=== PATIENT | female | born 1965 | race Caucasian/White ===

== ENCOUNTER 2016-04-04 10:03 | Emergency (ER) | payer OTHER ==
[~2016-04-04] VITALS: Wt 72.0 kg
[~2016-04-04 10:03] MED LIST: PREN1TAB49 PO; RANI-347 PO; SIME125T17
[2016-04-04] MEDS ORDERED: DIPHENHYDRAMINE 50 MG INJ IV ONE (11:00)
[2016-04-04] MEDS ORDERED: METOCLOPRAMIDE 10 MG INJ IV ONE (11:00)
[2016-04-04] MEDS ORDERED: IBUP-1542 PO (11:20)
[2016-04-04] MEDS ORDERED: FLUT9.9S NASAL (11:20)
--- NOTE | 2016-04-04 11:34 | ERD ---
ER Documentation Chief Complaint Date/Time DATE: 04/04/16 TIME: 11:22 Chief Complaint NON TRAUMATIC HEADACHE AND SINUS PRESSURE FOR THEPAST FEW DAYS. NO NEURO HPI 51 year old female with history of HTN and high cholesterol not on any medications presents to the emergency department complaining of trapezius muscle pain radiating to the occipital region for and frontal sinus pressure for two days. Patient states she has history of sinusitis. She states pain is constant 8/10 worsening with movement. She states she had a lot of salt and bread yesterday which may have been a trigger for her. She has tried ibuprofen at 6am with some relief. She denies current photophobia, states she she had that yesterday. Denies nausea, vision changes. ROS All systems reviewed and are negative except as per history of present illness. Medications Home Meds Active Scripts Ibuprofen* (Ibuprofen*) 600 Mg Tablet, 600 MG PO Q6H Y for PAIN, #30 TAB Prov:JUANPABLO MADDEN PA-C 04/04/16 Fluticasone Propionate (Flonase Allergy Relief) 9.9 Ml [place].susp, 1 SPRAY NASAL BID, #1 BOTTLE TO EACH NOSTRIL Prov:JUANPABLO MADDEN PA-C 04/04/16 Reported Medications Ranitidine Hcl* (Ranitidine Hcl*) 75 Mg Tablet, 75 MG PO DAILY 02/05/12 Simethicone (Mylanta Gas Maximum Strength) 125 Mg Tab.chew, 125 MG .ROUTE BID 02/05/12 Vits W-Ca,Fe,Fa(<1MG) () 1 Tab Tablet, 1 TAB PO DAILY 02/05/12 Vits W-Ca,Fe,Fa(<1MG) () 1 Tab Tablet, 1 TAB PO DAILY 02/05/12 Vits W-Ca,Fe,Fa(<1MG) () 1 Tab Tablet, 1 TAB PO 01/10/12 Allergies Allergies: Uncoded Allergies: CHILE (Adverse Reaction, Intermediate, 01/10/12) PMhx/Soc Hx Cardiac Disorders: Yes (HIGH CHOLESTEROL) Hx Miscellaneous Medical Probl: Yes (DM DURING ) Hx Alcohol Use: No Hx Substance Use: No Hx Tobacco Use: No Smoking Status: Never smoker Physical Exam Vitals Vital Signs Date Time Temp Pulse Resp B/P Pulse Ox O2 Delivery O2 Flow Rate FiO2 04/04/16 10:04 98.7 72 20 166/74 96 Physical Exam GENERAL: well-developed/well-nourished, in no apparent distress, non-toxic appearing HENT: NC/AT, bilateral tympanic membrane is normal with good cone of light, nares patent, oropharynx clear without exudates EYES: Conjunctiva normal, PERRLA, EOMI, no nystagmus noted NECK: Supple, no lymphadenopathy PULM: CTA bilaterally, no rales, rhonchi, or wheezing heard CV: Normal S1S2, RRR, good capillary refill GI: Soft, non-distended, normal bowel sounds, non-tender BACK: No midline tenderness, no masses, No CVAT. TTP on trapezius muscle EXT: No clubbing, cyanosis, or edema NEURO: Alert and orientated to person, place, and time. CN II-IIX intact. Gait and coordination were normal. Hand cooling room attendant strength were equal and within normal limits SKIN: Intact, normal turgor PSYCH: Normal mood and mentation, patient denied SI Results 24 hrs Laboratory Tests Test 04/04/16 11:13 Bedside Glucose 92mg/dL Current Medications Medications (Trade) Dose Ordered Sig/Lorenzo Route PRN Reason Start Time Stop Time Status Last Admin Dose Admin Diphenhydramine HCl (Benadryl) 50 mg ONCE ONCE IV 04/04/16 11:00 04/04/16 11:01 DC 04/04/16 10:55 Metoclopramide HCl (Reglan) 10 mg ONCE ONCE IV 04/04/16 11:00 04/04/16 11:01 DC 04/04/16 10:55 Procedures/MDM 51 year old female presents with frontal sinus pressure and occipital headache with trapezius muscle pain. My differential diagnoses include tension, migraine , and cluster headache, overuse medication headache, subarachnoid hemorrhage, meningitis, stroke. IV access established, pain relief was given in the ED with Benadryl and Reglan with some improvement. Patient is speaking clearly, ambulating well and smiling. Neurology exam was normal and I don't recommend a CT scan at this time. I have reassessed patient and her headache has improved significantly. Patient's blood pressure was elevated (>120/80) but appears stable without evidence of hypertension emergency or urgency. The patient was counseled about the risks of hypertension and urged to pursue outpatient monitoring and therapy within a week with their primary care physician. She is hemodynamically stable and neurovascularly intact. Prescriptions ibuprofen and flonase were given. Discussed to follow up with a primary care physician in the next couple days. Return to the ER if condition worsens or not improving as expected. Patient agreed and understood this plan. Patient agreed to follow-up with her primary care physician today or tomorrow Departure Diagnosis: Primary Impression: Headache Headache type: unspecified Headache chronicity pattern: acute headache Intractability: not intractable Qualified Code: R51 - Acute nonintractable headache, unspecified headache type Condition: Stable Patient Instructions: Self-Care for Headaches, Understanding Headache Pain, Managing Tension-type Headache Symptoms Referrals: HEATH BENTON (PCP) Additional Instructions: Visite a blair emmett lawson para un EXAMEN.Regrese a estas instalaciones si no se mejora kimmy esperbamos o kimmy le dijimos. [place] toda la medicina oscar y kimmy se le indic. Regrese a estas instalaciones si no se mejora kimmy esperbamos o kimmy le dijimos. JUANPABLO MADDEN PA-C Apr 04, 2016 11:33
[2016-04-04 11:43] VITALS: BP 134/65; PULSE 78; RESP 18; TEMP 98.3
== END 2016-04-04 11:43 | disposition home or self-care (01) ==
LOC: FTE 10:03
DX: R51 Headache (principal); I10 Essential (primary) hypertension
CPT/HCPCS: 82962; J1200; J2765; 96374; 96375

== ENCOUNTER 2016-09-22 07:38 | Emergency (ER) | payer OTHER ==
[~2016-09-22] VITALS: Wt 71.0 kg
[~2016-09-22 07:38] MED LIST changes: +FLUT9.9S NASAL; +IBUP-1542 PO
--- NOTE | 2016-09-22 09:44 | ERD ---
ER Documentation Chief Complaint Date/Time DATE: 09/22/16 TIME: 09:40 Chief Complaint BLOOD PRESSURE HIGHER THAN USUAL; BLURRY/DIZZY HPI 51-year-old female with a history of hypertension presenting with an episode of blurry vision yesterday with some dizziness. She also had a headache that has since resolved. She also complains of occasional palpitations but she states that this has been going on for a very long time. She denies any current chest pain, shortness of breath, dizziness, fever, chills, nausea, vomiting, or vision disturbance. No focal weakness or numbness. Her systolic blood pressure at home was in the 150s so she got concerned. She is not on any blood pressure medications. She does have a PCP ROS All systems reviewed and are negative except as per history of present illness. Medications Home Meds Active Scripts Ibuprofen* (Ibuprofen*) 600 Mg Tablet, 600 MG PO Q6H Y for PAIN, #30 TAB Prov:JUANPABLO MADDEN PA-C 04/04/16 Fluticasone Propionate (Flonase Allergy Relief) 9.9 Ml [place].susp, 1 SPRAY NASAL BID, #1 BOTTLE TO EACH NOSTRIL Prov:JUANPABLO MADDEN PA-C 04/04/16 Reported Medications Ranitidine Hcl* (Ranitidine Hcl*) 75 Mg Tablet, 75 MG PO DAILY 02/05/12 Simethicone (Mylanta Gas Maximum Strength) 125 Mg Tab.chew, 125 MG .ROUTE BID 02/05/12 Vits W-Ca,Fe,Fa(<1MG) () 1 Tab Tablet, 1 TAB PO DAILY 02/05/12 Vits W-Ca,Fe,Fa(<1MG) () 1 Tab Tablet, 1 TAB PO DAILY 02/05/12 Vits W-Ca,Fe,Fa(<1MG) () 1 Tab Tablet, 1 TAB PO 01/10/12 Allergies Allergies: Uncoded Allergies: CHILE (Adverse Reaction, Intermediate, 01/10/12) PMhx/Soc Medical and Surgical Hx: pt denies Surgical Hx Hx Cardiac Disorders: Yes (HIGH CHOLESTEROL) Hx Miscellaneous Medical Probl: Yes (DM DURING ) Hx Alcohol Use: No Hx Substance Use: No Hx Tobacco Use: No Smoking Status: Never smoker FmHx Family History: other (Hypertension, high cholesterol), No diabetes Physical Exam Vitals Vital Signs Date Time Temp Pulse Resp B/P Pulse Ox O2 Delivery O2 Flow Rate FiO2 09/22/16 07:46 98.3 102 18 177/80 99 Physical Exam Const: Well-appearing, no apparent distress Head: Atraumatic Eyes: Normal Conjunctiva ENT: Normal External Ears, Nose and Mouth. Neck: Full range of motion..~ No meningismus. No JVD Resp: Clear to auscultation bilaterally Cardio: Regular rate and rhythm, no murmurs. 2+ distal pulses Abd: Soft, non tender, non distended. Normal bowel sounds Skin: No petechiae or rashes Back: No midline or flank tenderness Ext: No cyanosis, or edema Neur: Awake and alert and oriented 3, cranial nerves intact, strength and sensations intact in all 4 extremities, normal gait Psych: Normal Mood and Affect Procedures/MDM EKG: Rate/Rhythm: Normal Sinus Rhythm QRS, ST, T-waves: Slightly short [place] interval of 102, no changes consistent w / acute ischemia Impression: No evidence of ischemia or arrhythmia test negative [facility] Patient is presenting with hypertension and is completely asymptomatic at this time. Her vitals are notable for mildly elevated systolic blood pressure, however there is no evidence of hypertensive urgency or emergency. I do not suspect acute coronary syndrome, pulmonary embolism, acute intracranial pathology, or acute heart failure. She is completely asymptomatic at this time , so I do not think any further workup is needed. Her EKG did not show evidence of arrhythmia. However she does complain of palpitations. She does have nonspecific shortening of the [place] interval, however I do not think this is contributing to her symptoms. I advised patient to monitor her blood pressure daily at home and follow-up with her primary care doctor to discuss her options for her hypertension treatment. At this time the patient is stable for discharge with continued outpatient follow-up. Return precautions were discussed. Departure Diagnosis: Primary Impression: Hypertension Hypertension type: unspecified secondary hypertension Qualified Code: I15.9 - Secondary hypertension Additional Impression: Palpitations Condition: Stable Patient Instructions: High Blood Pressure (Hypertension), Palpitations Referrals: HEATH BENTON Additional Instructions: Jasiel fatmata bessy con blair mdico de atencin primaria para un seguimiento en 2 henderson. Volver a la misael de emergencias para cualquier empeoramiento de los sntomas. RUSSELL WINN MD Sep 22, 2016 09:43
== END 2016-09-22 09:43 | disposition home or self-care (01) ==
LOC: E/R 07:38
DX: I15.9 Secondary hypertension, unspecified (principal); R00.2 Palpitations
CPT/HCPCS: 93005; Z7502